=== PATIENT | male | born 1950 | race Caucasian/White ===

== ENCOUNTER 2017-05-07 14:57 | Emergency (ER) | payer MEDICAID, MEDICARE, OTHER ==
[~2017-05-07] VITALS: Ht 172.7 cm; Wt 89.0 kg
[~2017-05-07 14:57] MED LIST: CHOL1CAP2 PO; CIAL5TAB PO; CITA20TA4 PO; CLAR10TA7 PO; FENO160T PO; FINA5TAB77 PO; HYDR10SO PO; LISI10TA PO; PRAV40TA PO; RANI150T PO; TAMS0.4C67 PO; TEMA15 PO; TIZA4 PO; VIAG100T PO
[2017-05-07 15:08] VITALS: BP 156/91; PULSE 73; RESP 16; TEMP 98.4; O2SAT 97
[2017-05-07] MEDS ORDERED: TAMS0.4C4 PO (15:16)
[2017-05-07] MEDS ORDERED: METH500T3 PO (15:16)
[2017-05-07] MEDS ORDERED: RANI150T PO (15:16)
[2017-05-07] MEDS ORDERED: CITA40TA4 PO (15:16)
[2017-05-07] MEDS ORDERED: TRAZ300T2 PO (15:16)
[2017-05-07] MEDS ORDERED: FINA5TAB2 PO (15:16)
[2017-05-07] MEDS ORDERED: LISI10TA3 PO (15:16)
[2017-05-07] MEDS ORDERED: FENO160T PO (15:16)
[2017-05-07] MEDS ORDERED: PRAV40TA2 PO (15:16)
[2017-05-07] MEDS ORDERED: BUSP5TAB PO (15:16)
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
[2017-05-07] MEDS ORDERED: SODIUM CHLORIDE 0.9% FLUSH 10 ML FLUSH IV FLUSH PRN (15:30)
[2017-05-07 16:14] LABS: AUTOMATED NEUTROPHIL # 6.7 TH/MM3 (1.8-7.7); BASOPHIL % 0.4 % (0.0-2.0); EOSINOPHIL # 0.8 TH/MM3 (0-0.4); EOSINOPHIL % 7.4 % (0.0-4.0); HEMATOCRIT 35.7 % (39.0-51.0); HEMO FLAGS DIFF FINAL; LYMPH % 19.7 % (9.0-44.0); LYMPHOCYTE # 2.1 TH/MM3 (1.0-4.8); MEAN CELL VOLUME 92.3 FL (80.0-100.0); MEAN CORPUSCULAR HEMOGLOBIN 31.2 PG (27.0-34.0); MEAN CORPUSCULAR HGB CONC 33.8 % (32.0-36.0); MONO % 11.2 % (0.0-8.0); NEUT % 61.3 % (16.0-70.0); PLATELET COUNT 209 TH/MM3 (150-450); RED BLOOD COUNT 3.86 MIL/MM3 (4.50-5.90); RED CELL DISTRIBUTION WIDTH 14.1 % (11.6-17.2); WHITE BLOOD COUNT 10.9 TH/MM3 (4.0-11.0)
--- NOTE | 2017-05-07 16:16 | RADRPT ---
EXAM DATE/TIME: 05/07/2017 15:44 [facility] COMPARISON: No previous studies available for comparison. INDICATIONS : Pain from falling. MEDICAL HISTORY : None. SURGICAL HISTORY : None. ENCOUNTER: Initial ACUITY: 2 weeks PAIN SCORE: 5/10 LOCATION: Right lower ribs. FINDINGS: The examination demonstrates a moderately displaced fracture of the eighth anterolateral rib. There are chronic interstitial changes within the pulmonary parenchyma. The heart is at the upper [place] its of normal in size. CONCLUSION: 1. Moderately displaced fracture of the eighth posterior lateral rib on the right. 2. Chronic appearing interstitial changes in the pulmonary parenchyma. No pneumothorax is seen. Siddharth Galvan MD on May 07, 2017 at 16:12 Board Certified Radiologist. This report was verified electronically.
[2017-05-07 16:22] LABS: APTT (PATIENT) 26.9 SEC (24.3-30.1); PROTHROMBIN TIME - PATIENT 11.1 SEC (9.8-11.6)
[2017-05-07 16:38] LABS: ALT (GPT) 38 U/L (12-78); ANION GAP 6 MEQ/L (5-15); AST (GOT) 28 U/L (15-37); BICARBONATE 29.9 MEQ/L (21.0-32.0); BLOOD UREA NITROGEN 13 MG/DL (7-18); CHLORIDE 105 MEQ/L (98-107); GLOMERULAR FILTRATION RATE 71 ML/MIN (>89); POTASSIUM 3.2 MEQ/L (3.5-5.1); SODIUM (NA) 141 MEQ/L (136-145)
[2017-05-07 16:40] LABS: ALKALINE PHOSPHATASE 41 U/L (45-117); TOTAL BILIRUBIN ADULT 0.5 MG/DL (0.2-1.0)
[2017-05-07] MEDS ORDERED: POTASSIUM CHLORIDE 20 MEQ CONTROLLED RELEASE TAB PO ONE (17:00)
[2017-05-07] MEDS ORDERED: IOHEXOL 350 MG/ML 10 ML VIAL (for RAD DIAG) IV ONE (17:32)
--- NOTE | 2017-05-07 17:49 | RADRPT ---
EXAM DATE/TIME: 05/07/2017 17:15 [facility] COMPARISON: No previous studies available for comparison. INDICATIONS : Trauma; fall. Patient complains of right sided abdominal pain. IV CONTRAST: 97 cc Omnipaque 350 (iohexol) IV ORAL CONTRAST: No oral contrast ingested. RADIATION DOSE: 14.29 CTDIvol (mGy) MEDICAL HISTORY : Hypertension. SURGICAL HISTORY : None. ENCOUNTER: Initial ACUITY: 1 day PAIN SCALE: 6/10 LOCATION: abdomen TECHNIQUE: Volumetric scanning of the abdomen and pelvis was performed. Using automated exposure control and ad justment of the mA and/or kV according to patient size, radiation dose was kept as low as reasonably achievable to obtain optimal diagnostic quality images. FINDINGS: There is a small pleural effusion on the right. There are COPD changes within the pulmonary parenchym a. The appearance of the liver, spleen, pancreas, adrenal glands and kidneys is within normal limits. The abdominal aorta is intact. There is no retroperitoneal lymphadenopathy. The visualized loops of small and large bowel in the upper abdomen are unremarkable. Graft there is n o free fluid within the pelvis. No iliac or inguinal adenopathy is present. The visualized bony structures demonstrate acute, moderately displaced fracture of the right eighth a nterolateral rib on the right. There is induration and a small amount of fluid in the lateral aspect of the right chest wall suggesting a small amount of hemorrhage into the subcutaneous soft tissues. There are old, healed fractures of the eighth and ninth posterior ribs on the left. There are degene rative changes within the spine. The osseous structures are otherwise intact. CONCLUSION: 1. Acute fracture of the right eighth anterolateral rib with a small surrounding hematoma. 2. Minimal pleural effusion at the right base. 3. COPD changes. 4. No findings to indicate acute intra-abdominal trauma identified. Siddharth Galvan MD on May 07, 2017 at 17:38 Board Certified Radiologist. This report was verified electronically.
[2017-05-07] MEDS ORDERED: BENZONATATE 100 MG CAP PO ONE (18:00)
[2017-05-07] MEDS ORDERED: traMADol HCL 50 MG TAB PO ONE (18:00)
[2017-05-07] MEDS ORDERED: TRAM50TA PO (18:25)
[2017-05-07] MEDS ORDERED: BENZ100 PO (18:25)
[2017-05-07] MEDS ORDERED: NAPR500 PO (18:25)
== END 2017-05-07 19:07 | disposition home or self-care (01) ==
LOC: NEPE 14:57
DX: S22.31XA Fracture of one rib, right side, initial encounter for closed fracture (principal); S30.1XXA Contusion of abdominal wall, initial encounter; R05 Cough; E87.6 Hypokalemia; H54.8 Legal blindness, as defined in USA; I10 Essential (primary) hypertension; W18.39XA Other fall on same level, initial encounter; Y92.410 Unspecified street and highway as the place of occurrence of the external cause
CPT/HCPCS: 71101; 74177; 80053; 83690; 85025; 85610; 85730; 99285; Q9967